=== PATIENT | male | born 1995 | race Hispanic/Latino ===

== ENCOUNTER 2024-03-29 22:50 | Emergency (ER) | payer SELFPAY ==
[~2024-03-29] VITALS: Ht 170.2 cm; Wt 90.7 kg
[~2024-03-29 22:50] MED LIST: CEFTRIAXONE 2GM VIAL IVPB ONE; IOHEXOL-350 75 ML VIAL IV ONE; dexaMETHasone SOD PHOSPHATE 4 MG/ML 1ML VIAL IVP ONE; ketOROlac 15MG/ML VIAL (15MG/ML) IV ONE
[2024-03-29 23:49] VITALS: TEMP 99
[2024-03-30] MEDS: ketOROlac 15MG/ML VIAL (15MG/ML) IV ONE (00:09)
[2024-03-30] MEDS: cefTRIAXone 1G VIAL IVPB ONE (00:09)
[2024-03-30] MEDS: dexaMETHasone SOD PHOSPHATE 4 MG/ML 1ML VIAL IV ONE (00:10)
[2024-03-30 00:21] LABS: CREATININE 0.8 mg/dL (0.5-1.3); POTASSIUM 4.1 mmol/L (3.5-5.1)
[2024-03-30 00:47] LABS: BASOPHILS # (AUTO) 0.04 K/uL (0.00-0.20); BASOPHILS % (AUTO) 0.3 % (0.0-5.0); EOSINOPHILS # (AUTO) 0.04 K/uL (0.00-0.70); EOSINOPHILS % (AUTO) 0.3 % (0.0-8.0); HEMATOCRIT 44.3 % (42-54); IMMATURE GRANULOCYTE ABSOLUTE 0.07 K/uL (0-1); LYMPHOCYTES # (AUTO) 2.6 K/uL (1.0-4.8); LYMPHOCYTES % (AUTO) 17.4 % (21.0-51.0); MEAN CORPUSCULAR HEMOGLOBIN 28.3 pg (27.0-33.0); MEAN CORPUSCULAR HGB CONC 34.3 g/dL (32.0-36.0); MEAN CORPUSCULAR VOLUME 82.3 fL (79-99); MONOCYTES # (AUTO) 1.3 K/uL (0.1-1.0); MONOCYTES % (AUTO) 8.4 % (3.0-13.0); NEUTROPHILS % (AUTO) 73.1 % (40.0-77.0); PLATELET COUNT (AUTO) 278 K/uL (130-400); RED BLOOD CELL COUNT(AUTO) 5.38 MIL/uL (4.50-6.20)
[2024-03-30] MEDS ORDERED: IOHEXOL-350 75 ML VIAL IV ONE (00:49)
--- NOTE | 2024-03-30 01:00 | HMCIMG ---
CT NECK SOFT TISS W/CONTRAST HISTORY: Peritonsillar abscess COMPARISON: None TECHNIQUE: Multiple sequential axial images of the soft tissue neck were obtained. Patient was given 75 cc of Omnipaque through intravenous route. FINDINGS: Visualized portion of brain parenchyma within the posterior fossa is within normal limits. There are bilateral peritonsillar soft tissue prominent mostly involving the left side consistent with tonsillitis. Hypodense focus is seen in the left parapharyngeal area measuring 8 mm may be related to left peritonsillar abscess. There are bilateral ethmoid, maxillary and sphenoid sinus disease. Parapharyngeal fat planes are preserved bilaterally. Parotid glands and submandibular glands are grossly within normal limits. There are borderline in size cervical lymph nodes. The airway is patent. Visualized portion of the lung apices are unremarkable. IMPRESSION: 1. There are bilateral peritonsillar soft tissue prominent mostly involving the left side consistent with tonsillitis. Hypodense focus is seen in the left parapharyngeal area measuring 8 mm may be related to left peritonsillar abscess. There are bilateral ethmoid, maxillary and sphenoid sinus disease. Borderline in size cervical lymph nodes are seen. CT was performed with one or more following dose reduction techniques: automated exposure control, adjustment of the mA and kv according to patient's size, or use of a iterative reconstruction technique.
[2024-03-30] MEDS ORDERED: CLIN-141 PO (01:12)
[2024-03-30] MEDS ORDERED: KETO10TA2 PO (01:12)
[2024-03-30] MEDS ORDERED: METH4TAB3 PO (01:12)
--- NOTE | 2024-03-30 01:12 | ERN ---
General Chief Complaint: Sore Throat Stated Complaint: C/O SORE THROAT Time Seen by MD: 22:54 Time Seen by Midlevel: 22:54 Source: patient History of Present Illness Initial Comments Patient is a 28-year-old male with a past medical history of recurrent peritonsillar abscess presenting to the emergency department with throat pain that started approximately three days ago. Patient reports going to [place] and obtaining amoxicillin 500 mg and penicillin. He has been taking this medication for the last two days with little to no improvement so he decided to report to the ER for further evaluation. Denies any fever, chills, or any other symptoms at this time. Allergies: Coded Allergies: No Known Allergies (Unverified Allergy, Unknown, 03/29/24) Home Meds Active Scripts Clindamycin HCl (Clindamycin HCl) 300 Mg Capsule, 1 CAP PO TID for 10 Days, #30 CAP 0 Refills Prov:KEITH CHAKRABORTY 03/30/24 Methylprednisolone (Medrol) 4 Mg Tab.ds.pk, 1 TAB PO AD for 6 Days, #21 TAB 0 Refills 6 on day 1 then reduce by one tablet daily until gone Prov:KEITH CHAKRABORTY 03/30/24 Ketorolac Tromethamine (Ketorolac Tromethamine) 10 Mg Tablet, 1 TAB PO TID for pain for 5 Days, #15 TAB 0 Refills Prov:KEITH CHAKRABORTY 03/30/24 Past Medical History Past Medical History: No Pertinent History Past Surgical History: None ROS Dictation CONSTITUTIONAL: Negative except for HPI HEAD/FACE: Negative except for HPI EENT: Negative except for HPI RESPIRATORY: Negative except for HPI GASTROINTESTINAL/ABDOMINAL: Negative except for HPI GENITOURINARY: Negative except for HPI MUSCULOSKELETAL: Negative except for HPI INTEGUMENTARY: Negative except for HPI NEUROLOGICAL/PSYCH: Negative except for HPI HEMATOLOGIC/LYMPHATIC: Negative except for HPI All Systems Negative, Except as noted above. 13 point review of systems assessed and all negative except for above. Physical Exam Physical Exam Dictation Vital Signs reviewed General Appearance: Alert, oriented x 3, no acute distress, well developed, nourished. Head and Face: non-traumatic. Eyes: PERRL, pink conjunctivas, eyelid no trauma, anterior chamber with arcus senilis. Ears: Pinnas intact and no signs of trauma or erythema ear canals clear and no discharge TM no erythema Nose: No discharge, no bleeding. Oropharynx: Mouth normal, tongue pink, Erythema to the posterior oropharynx, left peritonsillar abscess, uvula deviated to the right, patient is tolerating secretions and speaking in complete sentences Neck: Supple, non-tender, no thyromegaly, no masses, no JVD, no bruits Breast:Deferred Chest:No tenderness, no crepitus, no paradoxical movement, no retractions Lungs:Clear, well-ventilated, symmetric, no rales, no wheezing, no rhonchi, no stridor, good breath sounds bilaterally Heart: Regular rate, regular rhythm, no murmur, no gallops Vascular: no peripheral edema, Abdomen: Soft, positive bowel sounds, nondistended, no guarding, nontender, no rebound, no masses no hepatomegaly, no splenomegaly, no Bird's sign, no hernias. Rectal: Deferred Genital: Deferred Neurological: Normal speech, motor function intact, sensory function intact Musculoskeletal: Neck nontender, full range of motion, back nontender, full range of motion, Extremities: nontender, full range of motion Skin: Color pink, dry, no turgor, no rash, no lacerations, no abrasions, no contusions. Lymphatic: Deferred Results Laboratory and Microbiology Lab and Micro Result Laboratory Tests Test 03/29/24 21:38 03/30/24 00:03 Group A Streptococcus Rapid negative (NEGATIVE) White Blood Count 15.0 K/uL (4.8-10.8) H Red Blood Count 5.38 MIL/uL (4.50-6.20) Hemoglobin 15.2 g/dL (14.0-18.0) Hematocrit 44.3 % (42-54) Mean Corpuscular Volume 82.3 fL (79-99) Mean Corpuscular Hemoglobin 28.3 pg (27.0-33.0) Mean Corpuscular Hemoglobin Concent 34.3 g/dL (32.0-36.0) Red Cell Distribution Width 12.0 % (11.0-15.5) Platelet Count 278 K/uL (130-400) Mean Platelet Volume 9.1 fL (7.5-10.5) Immature Granulocyte % (Auto) 0.5 % (0-1) Neutrophils (%) (Auto) 73.1 % (40.0-77.0) Lymphocytes (%) (Auto) 17.4 % (21.0-51.0) L Monocytes (%) (Auto) 8.4 % (3.0-13.0) Eosinophils (%) (Auto) 0.3 % (0.0-8.0) Basophils (%) (Auto) 0.3 % (0.0-5.0) Neutrophils # (Auto) 11.0 K/uL (1.8-7.7) H Lymphocytes # (Auto) 2.6 K/uL (1.0-4.8) Monocytes # (Auto) 1.3 K/uL (0.1-1.0) H Eosinophils # (Auto) 0.04 K/uL (0.00-0.70) Basophils # (Auto) 0.04 K/uL (0.00-0.20) Absolute Immature Granulocyte (auto 0.07 K/uL (0-1) Nucleated Red Blood Cells 0.0 % (0.0-0.19) Sodium Level 137 mmol/L (136-145) Potassium Level 4.1 mmol/L (3.5-5.1) Chloride Level 99 mmol/L (101-111) L Carbon Dioxide Level 30 mmol/L (21-32) Blood Urea Nitrogen 15 mg/dL (7-18) Creatinine 0.8 mg/dL (0.5-1.3) Glomerular Filtration Rate Calc 124 mL/min (>90) Random Glucose 101 mg/dL (70-105) Total Calcium 9.6 mg/dL (8.5-10.1) Labs Reviewed?: Yes MDM MDM: Patient is a 28-year-old male with a past medical history of recurrent peritonsillar abscess presenting to the emergency department with throat pain that started approximately three days ago. Patient reports going to [place] and obtaining amoxicillin 500 mg and penicillin. He has been taking this medication for the last two days with little to no improvement so he decided to report to the ER for further evaluation. Denies any fever, chills, or any other symptoms at this time. Initial vital signs are remarkable for a temperature of 99.0. Heart rate of 90 beats per minute. Blood pressures of 176/93. Pulse oximetry is 100% on room air. On physical examination patient is in no acute respiratory distress. Patient was tolerating secretions and speaking in complete sentences. ENT examination reveals left peritonsillar swelling with erythema to the posterior oropharynx. Uvula is slightly shifted to the right. The remainder of his physical examination is unremarkable. His CBC shows leukocytosis with a white blood cell count of 15.0. Chemistries are stable. Strep test is negative. Patient already tried amoxicillin and penicillin outpatient. There is a high clinical suspicion for peritonsillar abscess. A CT scan of the neck soft tissue with contrast was obtained which reveals a hypodense focus in the left parapharyngeal area measuring approximately 8 mm which may be related to a left peritonsillar abscess. The patient was given 2 g of ceftriaxone IV along with IV fluids and 10 mg of dexamethasone IV. Given the size of the peritonsi llar abscess we will treat conservatively with oral antibiotics. Patient will be started on clindamycin, dexamethasone and Toradol outpatient. If he does not improve over the next 24-48 hours he was advised to either report to the ER for follow up with ENT specialist. Patient agrees with this plan and is comfortable with discharge at this time. Differential diagnosis: Peritonsillar abscess, strep pharyngitis, tonsillitis There are no social concerns with this patient. Prescription drug management Prescriptions will include: Clindamycin, Toradol, Medrol pack Medical management and examination interpretation discussions were had by me with other qualified healthcare professionals as indicated for the patient's care. ED Course Orders Procedure Category Date Status Time Rapid (Group A Strep) LAB 03/29/24 Complete 22:58 Cbc With Differential LAB 03/29/24 Complete 23:39 Basic Metabolic Panel LAB 03/29/24 Complete 23:[address] Ct Neck Soft Tiss CT 03/29/24 Resulted W/Contrast 23:39 Ketorolac PHA 03/30/24 Complete Tromethamine 15mg/Ml 00:00 Dexamethasone 4mg/Ml PHA 03/30/24 Complete 1ml Vial (Dexametha 00:00 Ceftriaxone 1g Vial PHA 03/30/24 Complete (Rocephine 1g Inj) 00:00 Iohexol (Omnipaque) PHA 03/30/24 Complete 00:49 Current Medications Medications (Trade) Dose Ordered Sig/Nidia Route PRN Reason Start Time Stop Time Status Last Admin Dose Admin Ceftriaxone Sodium (ROCEphine 1G INJ) 2 gm ONCE ONCE IVPB 03/30/24 00:00 03/30/24 00:01 DC 03/30/24 00:09 Dexamethasone Sodium Phosphate (dexaMETHasone 4MG/ML 1ML VIAL) 10 mg ONCE ONCE IV 03/30/24 00:00 03/30/24 00:01 DC 03/30/24 00:10 Iohexol (Omnipaque) 75 ml STK-MED ONCE IV 03/30/24 00:49 03/30/24 00:49 DC Ketorolac Tromethamine (toRADol) 15 mg ONCE ONCE IV 03/30/24 00:00 03/30/24 00:01 DC 03/30/24 00:09 Vital Signs Date Time Temp Pulse Resp B/P (MAP) Pulse Ox O2 Delivery O2 Flow Rate FiO2 03/29/24 23:49 99.0 93 22 158/85 99 Room Air* 0 21 03/29/24 22:54 99.0 90 20 176/93 100 Room Air [place] [address] [place] [address] IMAGING REPORT Signed PATIENT: JANET WAY MR#: [id number] : 1995 SEX: M AGE: 28 LOCATION: ED ORDER [id number] STATUS: [facility] REPORT#: [id number] SERVICE [id number] REASON: r/o peritonsillar abscess ORDERING PHYSICIAN: KEITH CHAKRABORTY PROCEDURE: NKSOFTI W - CT NECK SOFT TISS W/CONTRAST CT NECK SOFT TISS W/CONTRAST HISTORY: Peritonsillar abscess COMPARISON: None TECHNIQUE: Multiple sequential axial images of the soft tissue neck were obtained. Patient was given 75 cc of Omnipaque through intravenous route. FINDINGS: Visualized portion of brain parenchyma within the posterior fossa is within normal limits. There are bilateral peritonsillar soft tissue prominent mostly involving the left side consistent with tonsillitis. Hypodense focus is seen in the left parapharyngeal area measuring 8 mm may be related to left peritonsillar abscess. There are bilateral ethmoid, maxillary and sphenoid sinus disease. Parapharyngeal fat planes are preserved bilaterally. Parotid glands and submandibular glands are grossly within normal limits. There are borderline in size cervical lymph nodes. The airway is patent. Visualized portion of the lung apices are unremarkable. IMPRESSION: 1. There are bilateral peritonsillar soft tissue prominent mostly involving the left side consistent with tonsillitis. Hypodense focus is seen in the left parapharyngeal area measuring 8 mm may be related to left peritonsillar abscess. There are bilateral ethmoid, maxillary and sphenoid sinus disease. Borderline in size cervical lymph nodes are seen. CT was performed with one or more following dose reduction techniques: automated exposure control, adjustment of the mA and kv according to patient's size, or use of a iterative reconstruction technique. DICTATED BY: TOI GONZALEZ MD DATE: 03/30/2450 ELECTRONICALLY SIGNED BY: TOI GONZALEZ MD DATE: 03/30/2499 DX & DISP Disposition: Discharge Departure Impression: Primary Impression: Peritonsillar abscess Condition: Stable Scripts Clindamycin HCl (Clindamycin HCl) 300 Mg Capsule 1 CAP PO TID for 10 Days, #30 CAP 0 Refills Prov: KEITH CHAKRABORTY 03/30/24 Methylprednisolone (Medrol) 4 Mg Tab.ds.pk 1 TAB PO AD for 6 Days, #21 TAB 0 Refills 6 on day 1 then reduce by one tablet daily until gone Prov: KEITH CHAKRABORTY 03/30/24 Ketorolac Tromethamine (Ketorolac Tromethamine) 10 Mg Tablet 1 TAB PO TID for pain for 5 Days, #15 TAB 0 Refills Prov: KEITH CHAKRABORTY 03/30/24 Additional Instructions: Your blood work today is stable. Your CT scan shows a left peritonsillar abscess that measures 0.8 cm. Given the size of your abscess along with her normal labs we will go ahead and treat this outpatient. You were given IV antibiotics and steroids in the ER. Have given you a prescription for pain medication, oral antibiotics, and steroids which should help improve your symptoms over the next 24-48 hours. If your symptoms do not improve over the next 12:48 p.m. please return to the ER for further evaluation. Please take your antibiotics as prescribed. I have given you a follow up with an ENT specialist for outpatient evaluation. Referrals: SELF,REFERRAL (PCP) Time of Disposition: 01:07 I have reviewed the case, and I agree with, Diagnosis and Plan I performed the substantive portion of the visit. I have reviewed and personally made and approve the management plan that is documented in the note by myself or the OLAF. I acknowledge for responsibility for the patient's management plan. KEITH CHAKRABORTY Mar 30, 2024 01:12 MARCELA LANIER DO Mar 30, 2024 01:26
[2024-03-30 01:40] VITALS: BP 151/78; PULSE 85; RESP 22; O2SAT 99
== END 2024-03-30 02:00 | disposition home or self-care (01) ==
LOC: EDH 22:50
DX: J36 Peritonsillar abscess (principal); Z79.899 Other long term (current) drug therapy
CPT/HCPCS: 99285; 70491; 80048; 85025; 87880; 36415; 96374; 96375; Q9967; J1100; J1885; J0696